=== PATIENT | male | born 1955 | race American Indian/Alaskan Native ===

== ENCOUNTER → 2019-06-09 | Outpatient (CLI) | payer MEDICARE ==
[~2019-06-09] MED LIST: ALBU8HFA IH; ALBUTEROL IH; AMLO-383 PO; AMOX1TAB16 PO; ASPI-1111 PO; ATOR40TA71 PO; BUDE10.2 IH; DOXY100C PO; GUAIF600 PO; METO50 PO; PRED5 PO; [UNRECOGNIZED DRUG - CODE] PO
== END | disposition home or self-care (01) ==
LOC: PUC 12:50
DX: R05 Cough (principal); R50.9 Fever, unspecified; I51.7 Cardiomegaly; I25.10 Atherosclerotic heart disease of native coronary artery without angina pectoris

== ENCOUNTER 2019-06-15 08:20 | Inpatient (IN) | payer MEDICARE, MEDICAID ==
[~2019-06-15] VITALS: Ht 170.2 cm; Wt 85.0 kg
[~2019-06-15 08:20] MED LIST changes: -ALBU8HFA IH; -ALBUTEROL IH; -AMLO-383 PO; -AMOX1TAB16 PO; -ASPI-1111 PO; -ATOR40TA71 PO; -BUDE10.2 IH; -DOXY100C PO; -GUAIF600 PO; -METO50 PO; -PRED5 PO
[2019-06-15] MEDS ORDERED: ALBUTEROL IH (09:24)
[2019-06-15] MEDS ORDERED: BUDE10.2 IH (09:24)
[2019-06-15] MEDS ORDERED: ASPI-1111 PO (09:24)
[2019-06-15] MEDS ORDERED: AMLO-383 PO (09:24)
[2019-06-15] MEDS ORDERED: ATOR40TA71 PO (09:24)
[2019-06-15] MEDS ORDERED: METO50 PO (09:24)
[2019-06-15] MEDS ORDERED: IPRATROPIUM BROMIDE 0.5 MG/2.5 ML NEB SOLUTION NEB ONE ×2 (09:30→10:30)
[2019-06-15] MEDS ORDERED: MethylPREDNISolone SOD SUCC 125 MG/2 ML VIAL IVP ONE (09:30)
[2019-06-15] MEDS ORDERED: ALBUTEROL SULFATE 2.5 MG/0.5 ML NEB SOLUTION NEB ONE (09:30)
[2019-06-15 10:11] LABS: BASOPHILS % (AUTO) 0.4 % (0.0-2.0); EOSINOPHILS % (AUTO) 0.9 % (1.0-6.0); HEMATOCRIT 43.4 % (41-53); HEMOGLOBIN 14.4 g/dL (13.5-17.5); LYMPHOCYTES # (AUTO) 1.9 K/uL (1.0-4.8); LYMPHOCYTES % (AUTO) 11.7 % (22.0-44.0); MEAN CORPUSCULAR HGB CONC 33.1 G/dL (31.0-37.0); MEAN CORPUSCULAR VOLUME 91 fL (80-100); MONOCYTES # (AUTO) 1.7 K/uL (0.1-1.0); MONOCYTES % (AUTO) 10.2 % (2.0-9.0); NEUTROPHILS # (AUTO) 12.7 K/uL (1.8-7.7); NEUTROPHILS % (AUTO) 76.8 % (40.0-70.0); PLATELET COUNT (AUTO) 320 K/uL (150-450); RED BLOOD CELL COUNT(AUTO) 4.79 MIL/uL (4.50-5.90)
[2019-06-15 10:27] LABS: ANION GAP 5 mmol/L (8-16); CALCIUM, TOTAL 9.1 mg/dL (8.8-10.5); CARBON DIOXIDE 30 mmol/L (22-29); CHLORIDE 101 mmol/L (98-107); CREATININE 0.83 mg/dL (0.60-1.30); GLOMERULAR FILTR. RATE CALC > 60 mL/min (>60); GLUCOSE,RANDOM 100 mg/dL (70-110); POTASSIUM 3.8 mmol/L (3.5-5.1); SODIUM SERUM 136 mmol/L (136-145); UREA NITROGEN, BLOOD 11 mg/dL (7-18)
[2019-06-15] MEDS ORDERED: ALBUTEROL SULFATE 5 MG/ML 20 ML NEB SOLN [BULK] NEB ONE (10:30)
[2019-06-15 10:31] LABS: ALANINE AMINOTRANSFERASE 55 U/L (12-78); ALBUMIN 3.5 g/dL (3.4-5.0); ALKALINE PHOSPHATASE 85 U/L (46-116); ASPARTATE AMINOTRANSFERASE 26 U/L (15-37); BILIRUBIN,TOTAL 0.9 mg/dL (0.1-1.0); TOTAL PROTEIN, SERUM 8.1 g/dL (6.4-8.2)
[2019-06-15 10:50] LABS: B-TYPE NATRIURETIC PEPTIDE 59 pg/mL (0-100)
[2019-06-15 10:58] LABS: APPEARANCE,URINE CLEAR (CLEAR); BILIRUBIN,URINE NEGATIVE (NEGATIVE); GLUCOSE, URINE (UA) NEGATIVE (NEGATIVE); KETONES,URINE NEGATIVE (NEGATIVE); LEUKOCYTE ESTERASE ,URINE NEGATIVE (NEGATIVE); NITRATE,URINE NEGATIVE (NEGATIVE); OCCULT BLOOD,URINE NEGATIVE (NEGATIVE); PROTEIN,URINE NEGATIVE (NEGATIVE); UROBILINOGEN,URINE 0.2 mg/dL (<=1.0)
[2019-06-15 11:11] LABS: INFLUENZA TYPE A NEGATIVE FOR TYPE A (NEGATIVE); INFLUENZA TYPE B NEGATIVE FOR TYPE B (NEGATIVE)
[2019-06-15] MEDS ORDERED: ALBU8HFA IH (11:13)
[2019-06-15] MEDS ORDERED: ACETAMINOPHEN 325 MG TABLET PO PRN ×2 (11:15→11:30)
[2019-06-15] MEDS ORDERED: ONDANSETRON HCL 4 MG/2 ML VIAL IVP PRN ×2 (11:15→11:30)
[2019-06-15] MEDS ORDERED: 0.9% SODIUM CHLORIDE 10 ML SYRINGE IVP PRN ×2 (11:15→11:30)
[2019-06-15] MEDS ORDERED: LEVOFLOXACIN 750 MG/D5% WATER 150 ML IV ONE (11:15)
[2019-06-15] MEDS ORDERED: BISACODYL 10 MG RECTAL RECTAL SUPPOSITORY PR PRN (11:30)
[2019-06-15] MEDS ORDERED: DOCUSATE SODIUM 100 MG CAPSULE PO PRN (11:30)
[2019-06-15] MEDS ORDERED: IPRATROPIUM BROMIDE 0.5 MG/2.5 ML NEB SOLUTION NEB PRN (11:30)
[2019-06-15] MEDS ORDERED: MAGNESIUM HYDROXIDE SUSPENSION 30 ML UDCUP PO PRN (11:30)
[2019-06-15] MEDS ORDERED: ALBUTEROL SULFATE 2.5 MG/0.5 ML NEB SOLUTION NEB PRN (11:30)
[2019-06-15] MEDS ORDERED: BENZONATATE 100 MG CAPSULE PO PRN (11:30)
[2019-06-15] MEDS: PANTOPRAZOLE SODIUM 40 MG DR TABLET PO SCH (11:55)
[2019-06-15] MEDS: MethylPREDNISolone SOD SUCC 40 MG/ML VIAL IVP SCH ×2 (13:11→18:15)
[2019-06-15] MEDS: CefTRIAXone 1 GM/DEXTROSE 50 ML IV SCH (14:01)
[2019-06-15] MEDS: ALBUTEROL SULFATE 2.5 MG/0.5 ML NEB SOLUTION NEB SCH ×2 (14:56→20:13)
[2019-06-15] MEDS: IPRATROPIUM BROMIDE 0.5 MG/2.5 ML NEB SOLUTION NEB SCH ×2 (14:56→20:13)
[2019-06-15] MEDS ORDERED: ALBUTEROL SULFATE 2.5 MG/0.5 ML NEB SOLUTION NEB SCH (15:00)
[2019-06-15] MEDS ORDERED: IPRATROPIUM BROMIDE 0.5 MG/2.5 ML NEB SOLUTION NEB SCH (15:00)
[2019-06-15] MEDS: DOXYCYCLINE HYCLATE 100 MG in DEXTROSE 5%-WATER 100 ML IV SCH (16:03)
[2019-06-15] MEDS: METOPROLOL TARTRATE 50 MG TABLET PO SCH (18:15)
[2019-06-15] MEDS: HEPARIN SODIUM,PORCINE 5,000 UNITS/ML VIAL SQ SCH (21:48)
[2019-06-15] MEDS: GuaiFENesin SR 600 MG ER TABLET PO SCH (22:20)
[2019-06-15 22:28] VITALS: BP 151/79
[2019-06-15] MEDS ORDERED: PNEUMOCOCCAL VACCINE POLYVALENT 0.5 ML VIAL [PPSV23] IM ONE (23:45)
[2019-06-15] MEDS ORDERED: INFLUENZA VIRUS VACCINE QVS 2019-20 (3YR+)/PF 60 MCG/0.5 ML SYRINGE IM ONE (23:45)
[2019-06-16] MEDS ORDERED: SODIUM CHLORIDE 0.9% 250 ML IV ONE (00:04)
[2019-06-16] MEDS: DOXYCYCLINE HYCLATE 100 MG in DEXTROSE 5%-WATER 100 ML IV SCH ×2 (00:06→13:44)
[2019-06-16] MEDS: MethylPREDNISolone SOD SUCC 40 MG/ML VIAL IVP SCH ×4 (00:07→18:00)
[2019-06-16] MEDS: IPRATROPIUM BROMIDE 0.5 MG/2.5 ML NEB SOLUTION NEB SCH ×4 (02:00→20:32)
[2019-06-16] MEDS: ALBUTEROL SULFATE 2.5 MG/0.5 ML NEB SOLUTION NEB SCH ×4 (02:00→20:32)
[2019-06-16 05:29] VITALS: BP 155/76
[2019-06-16 07:22] VITALS: BP 155/72
[2019-06-16 08:14] LABS: BASOPHILS % (AUTO) 0.2 % (0.0-2.0); EOSINOPHILS % (AUTO) 0 % (1.0-6.0); HEMATOCRIT 41.5 % (41-53); HEMOGLOBIN 13.8 g/dL (13.5-17.5); LYMPHOCYTES # (AUTO) 1.2 K/uL (1.0-4.8); LYMPHOCYTES % (AUTO) 5.3 % (22.0-44.0); MEAN CORPUSCULAR HGB CONC 33.2 G/dL (31.0-37.0); MEAN CORPUSCULAR VOLUME 90 fL (80-100); MONOCYTES # (AUTO) 0.5 K/uL (0.1-1.0); MONOCYTES % (AUTO) 2.2 % (2.0-9.0); NEUTROPHILS # (AUTO) 21.4 K/uL (1.8-7.7); PLATELET COUNT (AUTO) 333 K/uL (150-450); RED BLOOD CELL COUNT(AUTO) 4.59 MIL/uL (4.50-5.90); RED CELL DISTRIBUTION WIDTH 14.8 % (11.5-14.5)
[2019-06-16 08:15] LABS: NEUTROPHILS % (AUTO) 92.3 % (40.0-70.0)
[2019-06-16 08:33] LABS: ALANINE AMINOTRANSFERASE 44 U/L (12-78); ALBUMIN 3.2 g/dL (3.4-5.0); ALKALINE PHOSPHATASE 80 U/L (46-116); ANION GAP 7 mmol/L (8-16); ASPARTATE AMINOTRANSFERASE 19 U/L (15-37); BILIRUBIN,TOTAL 0.8 mg/dL (0.1-1.0); CALCIUM, TOTAL 9.4 mg/dL (8.8-10.5); CARBON DIOXIDE 28 mmol/L (22-29); CHLORIDE 99 mmol/L (98-107); CREATININE 0.87 mg/dL (0.60-1.30); GLOMERULAR FILTR. RATE CALC > 60 mL/min (>60); GLUCOSE,RANDOM 150 mg/dL (70-110); POTASSIUM 3.9 mmol/L (3.5-5.1); SODIUM SERUM 134 mmol/L (136-145); TOTAL PROTEIN, SERUM 7.6 g/dL (6.4-8.2); UREA NITROGEN, BLOOD 15 mg/dL (7-18)
[2019-06-16] MEDS: METOPROLOL TARTRATE 50 MG TABLET PO SCH ×2 (08:58→21:10)
[2019-06-16] MEDS: VALSARTAN 160 MG TABLET PO SCH (08:58)
[2019-06-16] MEDS: ASPIRIN 81 MG EC TABLET PO SCH (08:59)
[2019-06-16] MEDS: HEPARIN SODIUM,PORCINE 5,000 UNITS/ML VIAL SQ SCH ×2 (09:01→21:11)
[2019-06-16] MEDS: AmLODIPine BESYLATE 5 MG TABLET PO SCH (09:01)
[2019-06-16] MEDS: GuaiFENesin SR 600 MG ER TABLET PO SCH ×2 (09:01→21:11)
[2019-06-16] MEDS: ATORVASTATIN CALCIUM 40 MG TABLET PO SCH (09:01)
[2019-06-16] MEDS: PANTOPRAZOLE SODIUM 40 MG DR TABLET PO SCH (09:01)
[2019-06-16 11:51] VITALS: BP 136/65
[2019-06-16] MEDS: CefTRIAXone 1 GM/DEXTROSE 50 ML IV SCH (12:57)
[2019-06-16 16:00] VITALS: BP 142/66
[2019-06-16 21:18] VITALS: BP 154/71
[2019-06-17 00:10] VITALS: BP 143/78
[2019-06-17] MEDS: DOXYCYCLINE HYCLATE 100 MG in DEXTROSE 5%-WATER 100 ML IV SCH ×2 (00:48→13:07)
[2019-06-17] MEDS: MethylPREDNISolone SOD SUCC 40 MG/ML VIAL IVP SCH ×5 (00:48→23:08)
[2019-06-17] MEDS: ALBUTEROL SULFATE 2.5 MG/0.5 ML NEB SOLUTION NEB SCH ×4 (01:59→19:49)
[2019-06-17] MEDS: IPRATROPIUM BROMIDE 0.5 MG/2.5 ML NEB SOLUTION NEB SCH ×4 (01:59→19:49)
[2019-06-17 05:55] VITALS: BP 145/81
[2019-06-17 07:21] LABS: BASOPHILS % (AUTO) 0.2 % (0.0-2.0); EOSINOPHILS % (AUTO) 0 % (1.0-6.0); HEMATOCRIT 41.8 % (41-53); HEMOGLOBIN 13.6 g/dL (13.5-17.5); LYMPHOCYTES # (AUTO) 1.2 K/uL (1.0-4.8); LYMPHOCYTES % (AUTO) 4.9 % (22.0-44.0); MEAN CORPUSCULAR HEMOGLOBIN 29.7 pg (26.0-34.0); MEAN CORPUSCULAR HGB CONC 32.5 G/dL (31.0-37.0); MEAN CORPUSCULAR VOLUME 91 fL (80-100); MONOCYTES # (AUTO) 0.7 K/uL (0.1-1.0); MONOCYTES % (AUTO) 2.8 % (2.0-9.0); NEUTROPHILS # (AUTO) 22.6 K/uL (1.8-7.7); PLATELET COUNT (AUTO) 349 K/uL (150-450); RED BLOOD CELL COUNT(AUTO) 4.58 MIL/uL (4.50-5.90); RED CELL DISTRIBUTION WIDTH 14.7 % (11.5-14.5)
[2019-06-17 07:22] LABS: NEUTROPHILS % (AUTO) 92.1 % (40.0-70.0)
[2019-06-17 07:42] LABS: ANION GAP 7 mmol/L (8-16); CARBON DIOXIDE 27 mmol/L (22-29); CHLORIDE 101 mmol/L (98-107); CREATININE 0.96 mg/dL (0.60-1.30); GLOMERULAR FILTR. RATE CALC > 60 mL/min (>60); GLUCOSE,RANDOM 126 mg/dL (70-110); POTASSIUM 3.7 mmol/L (3.5-5.1); SODIUM SERUM 135 mmol/L (136-145); UREA NITROGEN, BLOOD 24 mg/dL (7-18)
[2019-06-17 08:16] VITALS: BP 140/71
[2019-06-17] MEDS: ATORVASTATIN CALCIUM 40 MG TABLET PO SCH (08:17)
[2019-06-17] MEDS: METOPROLOL TARTRATE 50 MG TABLET PO SCH ×2 (08:17→17:43)
[2019-06-17] MEDS: ASPIRIN 81 MG EC TABLET PO SCH (08:17)
[2019-06-17] MEDS: VALSARTAN 160 MG TABLET PO SCH (08:17)
[2019-06-17] MEDS: GuaiFENesin SR 600 MG ER TABLET PO SCH ×2 (08:18→23:04)
[2019-06-17] MEDS: HEPARIN SODIUM,PORCINE 5,000 UNITS/ML VIAL SQ SCH ×2 (08:18→23:04)
[2019-06-17] MEDS: AmLODIPine BESYLATE 5 MG TABLET PO SCH (08:18)
[2019-06-17] MEDS: PANTOPRAZOLE SODIUM 40 MG DR TABLET PO SCH (08:18)
[2019-06-17] MEDS: CefTRIAXone 1 GM/DEXTROSE 50 ML IV SCH (12:02)
[2019-06-17 12:07] VITALS: BP 130/63
[2019-06-17 16:24] VITALS: BP 154/70
[2019-06-17 20:00] VITALS: BP 140/74
[2019-06-18] VITALS (7 sets, daily range): BP systolic 136–152; BP diastolic 66–79
[2019-06-18] MEDS: ALBUTEROL SULFATE 2.5 MG/0.5 ML NEB SOLUTION NEB SCH ×4 (02:40→19:49)
[2019-06-18] MEDS: IPRATROPIUM BROMIDE 0.5 MG/2.5 ML NEB SOLUTION NEB SCH ×4 (02:41→19:48)
[2019-06-18] MEDS: DOXYCYCLINE HYCLATE 100 MG in DEXTROSE 5%-WATER 100 ML IV SCH ×2 (03:02→13:08)
[2019-06-18] MEDS: MethylPREDNISolone SOD SUCC 40 MG/ML VIAL IVP SCH ×3 (06:18→17:13)
[2019-06-18 06:29] LABS: BASOPHILS % (AUTO) 0.1 % (0.0-2.0); EOSINOPHILS % (AUTO) 0 % (1.0-6.0); HEMATOCRIT 40.9 % (41-53); HEMOGLOBIN 13.3 g/dL (13.5-17.5); LYMPHOCYTES # (AUTO) 0.9 K/uL (1.0-4.8); LYMPHOCYTES % (AUTO) 4.4 % (22.0-44.0); MEAN CORPUSCULAR HEMOGLOBIN 29.5 pg (26.0-34.0); MEAN CORPUSCULAR HGB CONC 32.6 G/dL (31.0-37.0); MEAN CORPUSCULAR VOLUME 91 fL (80-100); MONOCYTES # (AUTO) 0.7 K/uL (0.1-1.0); MONOCYTES % (AUTO) 3.5 % (2.0-9.0); PLATELET COUNT (AUTO) 324 K/uL (150-450); RED BLOOD CELL COUNT(AUTO) 4.51 MIL/uL (4.50-5.90); RED CELL DISTRIBUTION WIDTH 14.2 % (11.5-14.5)
[2019-06-18 06:46] LABS: ALANINE AMINOTRANSFERASE 40 U/L (12-78); ALKALINE PHOSPHATASE 71 U/L (46-116); ANION GAP 6 mmol/L (8-16); ASPARTATE AMINOTRANSFERASE 17 U/L (15-37); BILIRUBIN,TOTAL 0.6 mg/dL (0.1-1.0); CALCIUM, TOTAL 9.3 mg/dL (8.8-10.5); CARBON DIOXIDE 28 mmol/L (22-29); CHLORIDE 100 mmol/L (98-107); CREATININE 0.92 mg/dL (0.60-1.30); GLOMERULAR FILTR. RATE CALC > 60 mL/min (>60); GLUCOSE,RANDOM 142 mg/dL (70-110); POTASSIUM 4.2 mmol/L (3.5-5.1); SODIUM SERUM 134 mmol/L (136-145); UREA NITROGEN, BLOOD 18 mg/dL (7-18)
[2019-06-18] MEDS: PANTOPRAZOLE SODIUM 40 MG DR TABLET PO SCH (10:16)
[2019-06-18] MEDS: AmLODIPine BESYLATE 5 MG TABLET PO SCH (10:16)
[2019-06-18] MEDS: ATORVASTATIN CALCIUM 40 MG TABLET PO SCH (10:16)
[2019-06-18] MEDS: ASPIRIN 81 MG EC TABLET PO SCH (10:16)
[2019-06-18] MEDS: VALSARTAN 160 MG TABLET PO SCH (10:16)
[2019-06-18] MEDS: METOPROLOL TARTRATE 50 MG TABLET PO SCH ×2 (10:17→17:13)
[2019-06-18] MEDS: HEPARIN SODIUM,PORCINE 5,000 UNITS/ML VIAL SQ SCH ×2 (10:17→22:17)
[2019-06-18] MEDS: GuaiFENesin SR 600 MG ER TABLET PO SCH ×2 (10:20→22:17)
[2019-06-18] MEDS ORDERED: SODIUM CHLORIDE 0.9% 250 ML IV ONE (11:41)
[2019-06-18] MEDS: CefTRIAXone 1 GM/DEXTROSE 50 ML IV SCH (11:51)
[2019-06-19] MEDS: MethylPREDNISolone SOD SUCC 40 MG/ML VIAL IVP SCH ×4 (01:43→17:54)
[2019-06-19] MEDS: DOXYCYCLINE HYCLATE 100 MG in DEXTROSE 5%-WATER 100 ML IV SCH ×2 (01:43→13:50)
[2019-06-19] MEDS: ALBUTEROL SULFATE 2.5 MG/0.5 ML NEB SOLUTION NEB SCH ×4 (02:56→21:00)
[2019-06-19] MEDS: IPRATROPIUM BROMIDE 0.5 MG/2.5 ML NEB SOLUTION NEB SCH ×4 (02:56→21:00)
[2019-06-19 04:34] VITALS: BP 150/77
[2019-06-19 05:18] LABS: HIV 1-2 SCREEN 4TH GEN W/RFLX Non Reactive (Non Reactive)
[2019-06-19 08:32] VITALS: BP 141/74
[2019-06-19] MEDS: METOPROLOL TARTRATE 50 MG TABLET PO SCH ×2 (08:33→17:54)
[2019-06-19] MEDS: PANTOPRAZOLE SODIUM 40 MG DR TABLET PO SCH (08:35)
[2019-06-19] MEDS: ATORVASTATIN CALCIUM 40 MG TABLET PO SCH (08:35)
[2019-06-19] MEDS: VALSARTAN 160 MG TABLET PO SCH (08:35)
[2019-06-19] MEDS: AmLODIPine BESYLATE 5 MG TABLET PO SCH (08:35)
[2019-06-19] MEDS: GuaiFENesin SR 600 MG ER TABLET PO SCH ×2 (08:35→22:39)
[2019-06-19] MEDS: ASPIRIN 81 MG EC TABLET PO SCH (08:35)
[2019-06-19] MEDS: HEPARIN SODIUM,PORCINE 5,000 UNITS/ML VIAL SQ SCH ×2 (08:35→22:39)
[2019-06-19 12:15] VITALS: BP 149/71
[2019-06-19] MEDS: CefTRIAXone 1 GM/DEXTROSE 50 ML IV SCH (12:25)
[2019-06-19 17:53] VITALS: BP 150/72
[2019-06-19 20:18] VITALS: BP 147/79
[2019-06-19] MEDS: BENZONATATE 100 MG CAPSULE PO PRN (22:48)
[2019-06-19 23:06] LABS: QUANTIFERON+, Nil Value 0.02 IU/mL; QUANTIFERON+,Mitogen Value 1.32 IU/mL; QUANTIFERON+,TB1 Antigen Value 0.02 IU/mL; QUANTIFERON, TB GOLD PLUS Negative (Negative)
[2019-06-19 23:20] VITALS: BP 136/68
[2019-06-20] MEDS: DOXYCYCLINE HYCLATE 100 MG in DEXTROSE 5%-WATER 100 ML IV SCH ×2 (02:01→12:13)
[2019-06-20] MEDS: MethylPREDNISolone SOD SUCC 40 MG/ML VIAL IVP SCH ×4 (02:01→21:25)
[2019-06-20] MEDS: ALBUTEROL SULFATE 2.5 MG/0.5 ML NEB SOLUTION NEB SCH ×4 (02:05→20:34)
[2019-06-20] MEDS: IPRATROPIUM BROMIDE 0.5 MG/2.5 ML NEB SOLUTION NEB SCH ×4 (02:05→20:34)
[2019-06-20 05:03] VITALS: BP 142/75
[2019-06-20] MEDS: METOPROLOL TARTRATE 50 MG TABLET PO SCH ×2 (08:42→17:22)
[2019-06-20] MEDS: ATORVASTATIN CALCIUM 40 MG TABLET PO SCH (08:42)
[2019-06-20] MEDS: AmLODIPine BESYLATE 5 MG TABLET PO SCH (08:42)
[2019-06-20] MEDS: ASPIRIN 81 MG EC TABLET PO SCH (08:43)
[2019-06-20] MEDS: VALSARTAN 160 MG TABLET PO SCH (08:43)
[2019-06-20] MEDS: GuaiFENesin SR 600 MG ER TABLET PO SCH ×2 (08:43→21:25)
[2019-06-20] MEDS: PANTOPRAZOLE SODIUM 40 MG DR TABLET PO SCH (08:43)
[2019-06-20] MEDS: HEPARIN SODIUM,PORCINE 5,000 UNITS/ML VIAL SQ SCH ×2 (08:44→21:25)
[2019-06-20] MEDS: CefTRIAXone 1 GM/DEXTROSE 50 ML IV SCH (11:33)
[2019-06-20 11:48] VITALS: BP 125/63
[2019-06-20 18:26] VITALS: BP 140/78
[2019-06-20 21:47] VITALS: BP 141/77
[2019-06-21] MEDS: DOXYCYCLINE HYCLATE 100 MG in DEXTROSE 5%-WATER 100 ML IV SCH ×3 (00:43→23:58)
[2019-06-21 01:00] VITALS: BP 159/78
[2019-06-21] MEDS: BENZONATATE 100 MG CAPSULE PO PRN ×2 (02:01→23:59)
[2019-06-21] MEDS: ALBUTEROL SULFATE 2.5 MG/0.5 ML NEB SOLUTION NEB SCH ×4 (02:45→19:40)
[2019-06-21] MEDS: IPRATROPIUM BROMIDE 0.5 MG/2.5 ML NEB SOLUTION NEB SCH ×4 (02:45→19:40)
[2019-06-21 06:54] LABS: BASOPHILS % (AUTO) 0.2 % (0.0-2.0); EOSINOPHILS % (AUTO) 0 % (1.0-6.0); HEMATOCRIT 39.4 % (41-53); HEMOGLOBIN 12.9 g/dL (13.5-17.5); LYMPHOCYTES # (AUTO) 0.6 K/uL (1.0-4.8); LYMPHOCYTES % (AUTO) 3.8 % (22.0-44.0); MEAN CORPUSCULAR HGB CONC 32.8 G/dL (31.0-37.0); MEAN CORPUSCULAR VOLUME 91 fL (80-100); MONOCYTES % (AUTO) 6.4 % (2.0-9.0); NEUTROPHILS # (AUTO) 14.6 K/uL (1.8-7.7); PLATELET COUNT (AUTO) 283 K/uL (150-450); RED BLOOD CELL COUNT(AUTO) 4.31 MIL/uL (4.50-5.90); RED CELL DISTRIBUTION WIDTH 14.4 % (11.5-14.5)
[2019-06-21 06:58] LABS: NEUTROPHILS % (AUTO) 89.6 % (40.0-70.0)
[2019-06-21 08:00] VITALS: BP 153/76
[2019-06-21] MEDS: VALSARTAN 160 MG TABLET PO SCH (08:48)
[2019-06-21] MEDS: ASPIRIN 81 MG EC TABLET PO SCH (08:48)
[2019-06-21] MEDS: GuaiFENesin SR 600 MG ER TABLET PO SCH ×2 (08:48→21:15)
[2019-06-21] MEDS: PANTOPRAZOLE SODIUM 40 MG DR TABLET PO SCH (08:48)
[2019-06-21] MEDS: ATORVASTATIN CALCIUM 40 MG TABLET PO SCH (08:49)
[2019-06-21] MEDS: MethylPREDNISolone SOD SUCC 40 MG/ML VIAL IVP SCH ×2 (08:49→21:14)
[2019-06-21] MEDS: METOPROLOL TARTRATE 50 MG TABLET PO SCH ×2 (08:49→17:48)
[2019-06-21] MEDS: AmLODIPine BESYLATE 5 MG TABLET PO SCH (08:49)
[2019-06-21] MEDS: HEPARIN SODIUM,PORCINE 5,000 UNITS/ML VIAL SQ SCH ×2 (08:49→21:15)
[2019-06-21 12:05] VITALS: BP 129/64
[2019-06-21] MEDS: CefTRIAXone 1 GM/DEXTROSE 50 ML IV SCH (12:14)
[2019-06-21 16:00] VITALS: BP 155/78
[2019-06-21 21:32] VITALS: BP 156/77
[2019-06-22 00:16] VITALS: BP 138/91
[2019-06-22] MEDS: ALBUTEROL SULFATE 2.5 MG/0.5 ML NEB SOLUTION NEB SCH ×3 (02:46→14:00)
[2019-06-22] MEDS: IPRATROPIUM BROMIDE 0.5 MG/2.5 ML NEB SOLUTION NEB SCH ×3 (02:46→14:00)
[2019-06-22 04:45] VITALS: BP 155/64
[2019-06-22 08:00] VITALS: BP 145/69
[2019-06-22] MEDS: ASPIRIN 81 MG EC TABLET PO SCH (08:06)
[2019-06-22] MEDS: ATORVASTATIN CALCIUM 40 MG TABLET PO SCH (08:06)
[2019-06-22] MEDS: METOPROLOL TARTRATE 50 MG TABLET PO SCH (08:06)
[2019-06-22] MEDS: PANTOPRAZOLE SODIUM 40 MG DR TABLET PO SCH (08:07)
[2019-06-22] MEDS: VALSARTAN 160 MG TABLET PO SCH (08:07)
[2019-06-22] MEDS: GuaiFENesin SR 600 MG ER TABLET PO SCH (08:07)
[2019-06-22] MEDS: AmLODIPine BESYLATE 5 MG TABLET PO SCH (08:07)
[2019-06-22] MEDS: HEPARIN SODIUM,PORCINE 5,000 UNITS/ML VIAL SQ SCH (08:10)
[2019-06-22] MEDS ORDERED: PredniSONE 10 MG TABLET PO SCH (09:00)
[2019-06-22] MEDS: CefTRIAXone 1 GM/DEXTROSE 50 ML IV SCH (11:45)
[2019-06-22 12:00] VITALS: BP 131/65
[2019-06-22] MEDS: DOXYCYCLINE HYCLATE 100 MG in DEXTROSE 5%-WATER 100 ML IV SCH (13:08)
[2019-06-22] MEDS ORDERED: GUAIF600 PO ×2 (14:59→15:16)
[2019-06-22] MEDS ORDERED: PRED5 PO (15:09)
[2019-06-22] MEDS ORDERED: DOXY100C PO (15:15)
[2019-06-22] MEDS ORDERED: AMOX1TAB16 PO (15:16)
[2019-06-22 16:05] LABS: LEGIONELLA PNEUMO AG URINE Negative (Negative); ORGANISM ID Not indicated.; S PNEUMO SOURCE Urine; STREP PNEUMONIAE AG URINE Negative (Negative); STREP.PNEUMO BODY FLUID CULT. Not indicated.
== END 2019-06-22 16:55 | disposition home or self-care (01) | DRG 871 ==
LOC: EMS 08:22 → 5S 18:47 → UNDOADMIN 18:47 → 5S 18:48
PROVIDERS: ADMIT Internal Medicine; ATTEND Internal Medicine
DX: A41.9 Sepsis, unspecified organism (principal); J96.20 Acute and chronic respiratory failure, unspecified whether with hypoxia or hypercapnia; J18.9 Pneumonia, unspecified organism; J44.1 Chronic obstructive pulmonary disease with (acute) exacerbation; I25.810 Atherosclerosis of coronary artery bypass graft(s) without angina pectoris; J44.0 Chronic obstructive pulmonary disease with (acute) lower respiratory infection; E78.5 Hyperlipidemia, unspecified; I25.10 Atherosclerotic heart disease of native coronary artery without angina pectoris; I11.9 Hypertensive heart disease without heart failure; Z87.891 Personal history of nicotine dependence
CPT/HCPCS: 71250; 84145; 86480; 86738; 87015; 87040; 87070; 87081; 87205; 87206; 87389; 87449; 87556; 87635; 87798; 87804; 87899; 93005; 93306; 94640; 94644; 97162; G0378; J0696; J1644; J1956; J2920; J2930; J3490; J7050; J7060